=== PATIENT | female | born 1985 | race Two or more races ===

== ENCOUNTER 2022-01-08 16:16 | Emergency (ER) | payer MEDICAID ==
[~2022-01-08] VITALS: Ht 157.5 cm; Wt 63.0 kg
[2022-01-08 17:04] LABS: Basophils # (auto) 0.1 10 ^3/uL (0-0.2); Basophils % (auto) 0.7 % (0.0-2.0); Eosinophils # (auto) 0.1 10 ^3/uL (0-0.8); Eosinophils % (auto) 1.2 % (0.0-7.0); Hematocrit 40.6 % (36.0-46.0); Hemoglobin 13.9 g/dL (12.2-16.2); Lymphocytes # (auto) 3.7 10 ^3/uL (0.4-5.4); Mean Corpuscular Hemoglobin 32.2 pg (28.0-32.0); Mean Corpuscular Hgb Conc. 34.2 g/dL (32.0-36.0); Monocytes # (auto) 0.8 10 ^3/uL (0-1.3); Monocytes % (auto) 7.3 % (0.0-12.0); Neutrophils # (auto) 6.7 10 ^3/uL (1.6-8.6); Neutrophils % (auto) 58.8 % (37.0-80.0); Red Blood Cells 4.31 10^6/uL (4.0-5.20); Red Cell Distribution Width 12.2 % (11.8-14.3); White Blood Cell 11.4 10^3/uL (4.4-10.8)
[2022-01-08 17:22] LABS: Albumin 3.2 g/dL (3.4-5.0); Calcium 8.7 mg/dL (8.5-10.1)
[2022-01-08 17:25] LABS: BUN/Creatinine Ratio 13.7; Bilirubin, Total 0.4 mg/dL (0.2-1.0); Total Protein 7.1 g/dL (6.4-8.2)
[2022-01-08] MEDS ORDERED: AMOX500C2 PO (18:25)
[2022-01-08] MEDS ORDERED: IBUP600T27 PO (18:25)
[2022-01-08 19:40] VITALS: BP 111/66
== END 2022-01-08 19:42 | disposition home or self-care (01) ==
LOC: ER 16:16
DX: J01.90 Acute sinusitis, unspecified (principal)
CPT/HCPCS: 36415; 70450; 80053; 85025